=== PATIENT | female | born 1985 | race Caucasian/White ===

== ENCOUNTER 2019-08-11 09:00 | Outpatient (CLI) | payer MEDICAID ==
[2019-08-11 15:20] LABS: MUDS CUTOFF CONCENTRATIONS CUTOFF CONC BELOW:
[2019-08-11 15:25] LABS: BILIRUBIN,URINE NEGATIVE (NEGATIVE); GLUCOSE, URINE (UA) NEGATIVE (NEGATIVE); KETONES,URINE (UA) NEGATIVE (NEGATIVE); LEUKOCYTE ESTERASE, URINE NEGATIVE (NEGATIVE); NITRITE,URINE NEGATIVE (NEGATIVE); OCCULT BLOOD,URINE SMALL (NEGATIVE); PH,URINE 6.5 PH (5.0-7.5); PROTEIN,URINE NEGATIVE (NEGATIVE); UROBILINOGEN,URINE 0.2 (NORMAL) E.U./dL (NORMAL)
[2019-08-11 15:30] LABS: CLARITY,URINE HAZY (CLEAR)
[2019-08-11 15:34] LABS: BACTERIA,URINE Few /HPF (None Seen); SQUAMOUS EPITHELIAL CELL,UR MANY Squamous (<= Few)
[2019-08-11 15:35] LABS: CRYSTALS,URINE 3-5 Calcium Oxalate /LPF
[2019-08-11 15:45] LABS: AMPHETAMINE SCREEN,URINE NEGATIVE (NEGATIVE); BENZODIAZEPINES SCREEN, URINE NEGATIVE (NEGATIVE); COCAINE SCREEN URINE NEGATIVE (NEGATIVE); METHADONE SCREEN, URINE NEGATIVE (NEGATIVE); METHAMPHETAMINES SCREEN, URINE NEGATIVE (NEGATIVE); OPIATE SCREEN, URINE NEGATIVE (NEGATIVE); OXYCODONE SCREEN, URINE NEGATIVE (NEGATIVE); TRICYCLIC ANTIDEPRESSANT,URINE NEGATIVE (NEGATIVE)
[2019-08-11 15:46] LABS: PROPOXYPHENE SCREEN, URINE NEGATIVE (NEGATIVE)
[2019-08-11 21:52] LABS: TRICHOMONAS VAGINALIS DNA NEGATIVE (NEGATIVE)
== END 2019-08-11 23:59 ==
LOC: LAB.R 09:00
PROVIDERS: ATTEND Nurse Practitioner Obstetrics & Gynecology
DX: Z36.89 Encounter for other specified antenatal screening (principal); Z11.3 Encounter for screening for infections with a predominantly sexual mode of transmission
CPT/HCPCS: 80306; 81001; 87086; 87491; 87591; 87661

== ENCOUNTER 2019-08-20 06:21 | Outpatient (CLI) | payer MEDICAID ==
--- NOTE | 2019-08-20 11:10 | Ultrasound Report ---
Reason: SUPER HIGH RISK PREG DUE TO SOCIAL PROBLEM Procedure Date: 08/20/2019 Accession Number: [id number] / [id number] Procedure: US - OB Detailed Eval CPT Code: Final Report FULL RESULT: EXAM: COMPLETE OBSTETRICAL ULTRASOUND EXAM DATE: 08/20/2019 08:21 AM. CLINICAL HISTORY: Late term care. anatomic survey. COMPARISON: None. TECHNIQUE: Real-time sonographic evaluation of the fetus performed by the automation controls specialist. Multiple workforce services representative static images were saved for review. DATING: Last menstrual period is unknown. EGA 31 weeks/2 days with AMANDA 10/20/2019 based on the current ultrasound. GENERAL EVALUATION Pedersen . Cardiac activity: 143 bpm. movement: Visualized. Presentation: Cephalic. Placenta: Anterior position. No evidence for previa. Umbilical cord: 3 vessel cord. Amniotic fluid: Subjectively normal. MVP 6.0 cm. BIOMETRY Bi-Parietal Diameter (BPD): 7.70 cm, 30 weeks/6 days Head Circumference (HC): 27.65 cm, 30 weeks/2 days Abdominal Circumference (AC): 28.47 cm, 32 weeks/3 days Femur Length (FL): 6.04 cm, 31 weeks/3 days Estimated Weight: 1839 g. 31 weeks 2 days ANATOMY Full characterization of anatomy is limited by advanced age. The following structures were seen and appear grossly normal: Four-chamber heart, outflow tracts, face/nose/lips, profile, three-vessel cord, stomach, diaphragm, open hands, and bladder. Mild renal pelviectasis; 4.4 mm (right) and 3.7 mm (left). MATERNAL STRUCTURES Uterus: Unremarkable. Cervix: Long and closed. Transabdominal length 3.9 cm. Right ovary/adnexa: Unremarkable. Left ovary/adnexa: Unremarkable. Free fluid: None. IMPRESSION: 1. Pedersen live intrauterine with gestational age 31 weeks and 2 days based on biometry today.. 2. Limited anatomic survey as described. Mild bilateral renal pelviectasis. The other visualized structures are grossly unremarkable. RADIA
== END 2019-08-20 06:22 | disposition home or self-care (01) ==
LOC: DI 06:21
PROVIDERS: ATTEND Nurse Practitioner Obstetrics & Gynecology
DX: O09.73 Supervision of high risk pregnancy due to social problems, third trimester (principal); Z3A.31 31 weeks gestation of pregnancy
CPT/HCPCS: 76811

== ENCOUNTER 2019-08-25 08:34 | Outpatient (CLI) | payer MEDICAID ==
[2019-08-25 08:52] LABS: BASOPHILS % (AUTO) 0.4 %; EOSINOPHILS # (AUTO) 0.1 10^3/uL (0.0-0.7); EOSINOPHILS % (AUTO) 1.4 %; HGB - HEMOGLOBIN 12.3 g/dL (12.0-16.0); LYMPHOCYTES # (AUTO) 0.9 10^3/uL (1.5-3.5); LYMPHOCYTES % (AUTO) 11.3 %; MEAN CORPUSCULAR HEMOGLOBIN 30.9 pg (27.0-31.0); MEAN CORPUSCULAR HGB CONC 33.3 g/dL (32.0-36.0); MEAN CORPUSCULAR VOLUME 92.7 fL (81.0-99.0); MEAN PLATELET VOLUME 10.4 fL (7.9-10.8); MONOCYTES # (AUTO) 0.5 10^3/uL (0.0-1.0); NEUTROPHILS # (AUTO) 6.3 10^3/uL (1.5-6.6); NEUTROPHILS % (AUTO) 80.4 %; PLT - PLATELET COUNT 203 10^3/uL (130-450); RED BLOOD COUNT 3.98 10^6/uL (4.20-5.40); RED CELL DISTRIBUTION WIDTH 12.7 % (12.0-15.0); WHITE BLOOD COUNT 7.9 x10^3/uL (4.8-10.8)
[2019-08-26 12:27] LABS: HIV AG/AB 4TH GEN NON-REACTIVE (NON-REACTIVE)
[2019-08-26 12:41] LABS: HEPATITIS B SURFACE ANTIGEN NON-REACTIVE (NON-REACTIVE); HEPATITIS C ANTIBODY NON-REACTIVE (NON-REACTIVE)
== END 2019-08-25 08:35 | disposition home or self-care (01) ==
LOC: LAB 08:34
PROVIDERS: ATTEND Nurse Practitioner Obstetrics & Gynecology
DX: Z36.89 Encounter for other specified antenatal screening (principal)
CPT/HCPCS: 36415; 81599; 82950; 85025; 86592; 86762; 86803; 86850; 86900; 86901; 87340; 87389

== ENCOUNTER 2019-08-29 07:29 | Outpatient (CLI) | payer MEDICAID | END 2019-08-29 07:30 | disposition home or self-care (01) | LOC: LAB 07:29 | PROVIDERS: ATTEND Nurse Practitioner Obstetrics & Gynecology | DX: O99.810 Abnormal glucose complicating pregnancy (principal); Z3A.00 Weeks of gestation of pregnancy not specified | CPT/HCPCS: 36415; 82951; 82952 ==

== ENCOUNTER 2019-09-11 10:00 | Outpatient (CLI) | payer MEDICAID ==
[2019-09-11 10:37] LABS: RUPTURE OF MEMBRANES PLUS POSITIVE (NEGATIVE)
[2019-09-11] MEDS ORDERED: SODIUM CHLORIDE FLUSH 0.9% 10 ML SYRINGE ONE (11:02)
[2019-09-11] MEDS ORDERED: LACTATED RINGERS 1,000 ML IV ONE (11:03)
[2019-09-11 11:27] LABS: BASOPHILS % (AUTO) 0.4 %; EOSINOPHILS # (AUTO) 0.1 10^3/uL (0.0-0.7); EOSINOPHILS % (AUTO) 0.7 %; HGB - HEMOGLOBIN 11.4 g/dL (12.0-16.0); LYMPHOCYTES % (AUTO) 9.7 %; MEAN CORPUSCULAR HEMOGLOBIN 30.9 pg (27.0-31.0); MEAN CORPUSCULAR VOLUME 93.5 fL (81.0-99.0); MEAN PLATELET VOLUME 10.7 fL (7.9-10.8); MONOCYTES # (AUTO) 0.5 10^3/uL (0.0-1.0); MONOCYTES % (AUTO) 5.4 %; NEUTROPHILS # (AUTO) 8.1 10^3/uL (1.5-6.6); PLT - PLATELET COUNT 186 10^3/uL (130-450); RED BLOOD COUNT 3.69 10^6/uL (4.20-5.40); WHITE BLOOD COUNT 9.8 x10^3/uL (4.8-10.8)
[2019-09-11 11:35] LABS: CALCIUM 8.6 mg/dL (8.5-10.3); CREATININE 0.6 mg/dL (0.4-1.0)
[2019-09-11 11:36] VITALS: BP 127/75
[2019-09-11] MEDS ORDERED: BETAMETHASONE 30 MG/5 ML VIAL IM ONE (11:55)
[2019-09-11] MEDS ORDERED: LACTATED RINGERS 1,000 ML IV SCH (12:00)
[2019-09-11] MEDS ORDERED: CLINDAMYCIN 900 MG/50 ML 50 ML IV SCH (12:00)
--- NOTE | 2019-09-11 12:14 | PREOP HISTORY & PHYSICAL ---
DATE OF SERVICE: 09/11/2019 Physician: Daniel Ham MD IDENTIFICATION: The patient is a 34-year-old G1, P0 female whose EDC is 20 October. This was made on a late ultrasound. CHIEF COMPLAINT: Spontaneous rupture of membranes. HISTORY OF PRESENT ILLNESS: The patient, at roughly 1800 on 09/09/2019, was sitting, at which time she noted a gush of fluid. She did not pursue this at this time. She has noted good motion in the interim. She presented to our labor and delivery unit this morning, at which time she was noted to have a positive ROM Plus. She has gross leaking of fluid from the vagina. A single pelvic examination shows her to be 4 cm, 75% effaced and -2 vertex. The patient's OB care started at 30 weeks at our office here. She had no previous care prior to this. She states two weeks prior to this, she was seen at the local clinic and had an ultrasound, which determined that she was . Her labs show her to be A+. Her 50-gram Glucola was elevated at 159. However, her three-hour GTT was normal. Fasting 91, one hour 164, two hour 125 and three-hour was 62. Her serology, hepatitis B, chlamydia and GC were all negative. Her HIV was also noted to be negative. PAST MEDICAL HISTORY: Positive for asthma. PAST SURGICAL HABITS: The patient had tubes placed in the young age. ALLERGIES: THE PATIENT RELATES that SHE IS ALLERGIC TO PENICILLIN, STATES that it was a bubble gum tasting like drugs. CURRENT MEDICATIONS: vitamins. HABITS: The patient denies use of alcohol, tobacco, street or addictive drugs. Her random U-tox was noted to be negative for all medications tested. HABITS: The patient is engaged. 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 REVIEW OF SYSTEMS: Negative. She does have swelling of the ankles. PHYSICAL EXAMINATION GENERAL: Well-developed, well-nourished female. She does have some chin hair at this time, which is partially shaved. VITAL SIGNS: Her temperature is 37, heart rate 108, blood pressure 127/75, respirations are 16. HEENT: Pupils are equal and round. Extraocular muscles are intact. Mouth shows evidence of poor dental hygiene. Thyroid is not enlarged. HEART: Regular rate and rhythm. LUNGS: Lung nielson are clear. ABDOMEN: Gravid, 33 cm fundal height. PELVIC: Cervical examination 4 cm, 75%, -2 vertex. DTRs are 2+. LABORATORY DATA: Electrolytes are all within normal limits. CBC shows a white count of 9.8, hemoglobin is 11.4, hematocrit 34.2, platelets are 186. Her ROM Plus is noted to be positive. IMPRESSION: A 34-year-old primigravida at 34.4 weeks with rupture of membranes. PLAN: We will administer clindamycin for coverage. We will administer betamethasone. We will transport the patient to [facility] in [place]. Accepting physician Evelyn Gracia has been contacted. TD: 09/11/2019 11:54 MTDD
== END 2019-09-11 12:41 | disposition short-term general hospital (02) ==
LOC: WFO 10:00 → FBP 10:04 → WFO 12:41
PROVIDERS: ATTEND Obstetrics & Gynecology
DX: O42.913 Preterm premature rupture of membranes, unspecified as to length of time between rupture and onset of labor, third trimester (principal); Z3A.34 34 weeks gestation of pregnancy
CPT/HCPCS: 36415; 80048; 82731; 84112; 85025; 87081; 87181; 87797; 96372; 96374; 99214; J7120

== ENCOUNTER 2022-04-03 14:26 | Outpatient (CLI) | payer MEDICAID ==
[2022-04-03 14:46] LABS: BASOPHILS % (AUTO) 0.4 %; EOSINOPHILS # (AUTO) 0.1 10^3/uL (0.0-0.7); EOSINOPHILS % (AUTO) 0.5 %; HCT - HEMATOCRIT 31.9 % (37.0-47.0); HGB - HEMOGLOBIN 10.6 g/dL (12.0-16.0); LYMPHOCYTES % (AUTO) 8.9 %; MEAN CORPUSCULAR HEMOGLOBIN 29.5 pg (27.0-31.0); MEAN CORPUSCULAR HGB CONC 33.2 g/dL (32.0-36.0); MEAN CORPUSCULAR VOLUME 88.9 fL (81.0-99.0); MEAN PLATELET VOLUME 10.5 fL (7.9-10.8); MONOCYTES # (AUTO) 0.6 10^3/uL (0.0-1.0); MONOCYTES % (AUTO) 4.9 %; NEUTROPHILS # (AUTO) 9.6 10^3/uL (1.5-6.6); NEUTROPHILS % (AUTO) 84.9 %; PLT - PLATELET COUNT 191 10^3/uL (130-450); RED BLOOD COUNT 3.59 10^6/uL (4.20-5.40); RED CELL DISTRIBUTION WIDTH 13.2 % (12.0-15.0); WHITE BLOOD COUNT 11.3 x10^3/uL (4.8-10.8)
[2022-04-03 15:48] LABS: BILIRUBIN,URINE NEGATIVE (NEGATIVE); GLUCOSE, URINE (UA) NEGATIVE (NEGATIVE); KETONES,URINE (UA) TRACE mg/dL (NEGATIVE); LEUKOCYTE ESTERASE, URINE SMALL (NEGATIVE); NITRITE,URINE NEGATIVE (NEGATIVE); OCCULT BLOOD,URINE SMALL (NEGATIVE); PROTEIN,URINE NEGATIVE (NEGATIVE); UROBILINOGEN,URINE 0.2 (NORMAL) E.U./dL (NORMAL)
[2022-04-03 16:12] LABS: CLARITY,URINE CLEAR (CLEAR); RBC,URINE 0-5 /HPF (0-5)
[2022-04-03 16:13] LABS: BACTERIA,URINE Many /HPF (None Seen); SQUAMOUS EPITHELIAL CELL,UR MANY Squamous (<= Few)
[2022-04-04 02:07] LABS: HBsAG SCREEN Negative (Negative); HCV AB <0.1 s/co ratio (0.0-0.9)
[2022-04-04 04:08] LABS: HIV SCREEN 4TH GENERATION Non Reactive (Non Reactive)
[2022-04-04 05:10] LABS: RPR Non Reactive (Non Reactive)
[2022-04-04 08:09] LABS: VARICELLA-ZOSTER AB IGG 671 index (Immune >165)
== END 2022-04-03 14:27 | disposition home or self-care (01) ==
LOC: LAB 14:26
PROVIDERS: ATTEND Obstetrics & Gynecology
DX: Z32.01 Encounter for pregnancy test, result positive (principal)
CPT/HCPCS: 36415; 81001; 85025; 86592; 86762; 86787; 86803; 86850; 86900; 86901; 87086; 87340; 87389

== ENCOUNTER 2022-04-05 09:32 | Outpatient (CLI) | payer MEDICAID ==
--- NOTE | 2022-04-05 16:26 | Ultrasound Report ---
PROCEDURE: OB Detailed Eval INDICATIONS: ENCOUNTER FOR OTHER SPECIFIED SCREENING OUTSIDE/PRIOR DATING DATA: Last menstrual period (LMP): Not available. LMP-based estimated date of delivery (AMANDA): Not available.. First dating scan (date and location): Not available. Estimated date of delivery (AMANDA) from first dating scan: Not available.. The below data below was generated using the ultrasound AMANDA of 05/13/2022. TECHNIQUE: Real-time scanning was performed of the fetus, with image documentation and biometric measurements. Endovaginal scanning: Not performed. COMPARISON: None. FINDINGS: General: A single living intrauterine gestation is present. Presentation: Cephalic Placenta: Placental position is posterior, without previa. Amniotic fluid index: 13.5 cm; largest pocket 4.3 cm. heart rate: 148 beats per minute. Maternal cervical canal: 6.3 cm long; normal length is 2.5 cm or more. biometrics: Biparietal diameter: 32 weeks 5 days Head circumference: 34 weeks 1 day Abdominal circumference: 37 weeks 3 days Femur length: 34 weeks 0 day Estimated gestational age from initial scan: not available. Composite gestational age from present scan: 34 weeks 4 days. Estimated weight and percentile: 2738 g; percentile not given. Measurement variability in biometric dating: +/- 10 days from 12-20 weeks gestation, +/- 2 weeks from 20-30 weeks gestation, +/- 3 weeks at 30 weeks gestation or later. Anatomic survey: Neuro: Suboptimally seen. Ventricles are normal at less than 10 mm. Cisterna magna is not visualized . Cerebellum is normal in size and morphology. Face: Nose and lips, facial profile are normal. Spine: No evidence for spina bifida. Heart: 4-chambered heart is present. The ventricular outflow tracts are suboptimally visualized. Diaphragm: Diaphragm is intact. Stomach: Left-sided stomach is present. Kidneys: No hydronephrosis. Normal is less than 5 mm in 2nd trimester, less than 7 mm in 3rd trimester. Cord: 3 vessel cord. Placental cord insertion are not well seen. Bladder: Normal in size. Extremities: All 4 extremities are visualized. IMPRESSION: 1. A single living intrauterine gestation with the estimated gestational age 34 weeks 4 days based on the current ultrasound. Ultrasound AMANDA 05/13/2022. 2. Limited anatomy due to size and position. brain, cardiac ventricular outflow tra cts and cord insertion not well seen. Otherwise, no anomaly is identified. Reviewed by: Sneha Matthew MD on 04/05/2022 4:24 PM PDT Approved by: Sneha Matthew MD on 04/05/2022 4:24 PM PDT Station ID: [id number]
== END 2022-04-05 09:33 | disposition home or self-care (01) ==
LOC: DI 09:32
PROVIDERS: ATTEND Obstetrics & Gynecology
DX: Z36.89 Encounter for other specified antenatal screening (principal)

== ENCOUNTER 2022-04-21 08:00 | Outpatient (CLI) | payer MEDICAID | END 2022-04-21 23:59 | disposition home or self-care (01) | LOC: LAB.WC 08:00 | PROVIDERS: ATTEND Obstetrics & Gynecology | DX: Z36.85 Encounter for antenatal screening for Streptococcus B (principal) | CPT/HCPCS: 87797 ==